=== PATIENT | male | born 1955 | race Two or more races ===

== ENCOUNTER 2018-09-29 07:15 | Inpatient (IN) | payer MEDICAID ==
[~2018-09-29] VITALS: Ht 170.2 cm; Wt 80.3 kg
[~2018-09-29 07:15] MED LIST: METF-414 PO
[2018-09-29] MEDS ORDERED: GLIP5TAB12 PO (08:51)
[2018-09-29] MEDS ORDERED: TOBR5DRO2 OP (08:51)
[2018-09-29] MEDS ORDERED: MULT-1276 PO (08:51)
[2018-09-29] MEDS ORDERED: ASCO-339 PO (08:51)
[2018-09-29] MEDS ORDERED: GABA-531 PO (08:51)
[2018-09-29] MEDS ORDERED: ALBU18HF2 IH (08:51)
[2018-09-29] MEDS ORDERED: LATA2.5D2 OP (08:51)
[2018-09-29] MEDS ORDERED: CEFOXITIN SODIUM 2 G in DEXT 5% WATER 100 ML IV SCH (09:30)
[2018-09-29] MEDS ORDERED: LIDOCAINE HCL 1% 20ML VIAL (Pyxis) INJ ONE (09:42)
[2018-09-29] MEDS ORDERED: BUPIVACAINE HCL/PF 0.5% (5MG/ML) 10ML ONE (09:43)
[2018-09-29] MEDS ORDERED: BACITRACIN 50,000 UNITS/VIAL ONE (09:43)
[2018-09-29] MEDS ORDERED: SKIN ADHESIVE 0.7 GM EA TOP ONE (09:43)
[2018-09-29] MEDS ORDERED: EPHEDRINE SULFATE 50MG/ML VIAL ONE (09:45)
[2018-09-29] MEDS ORDERED: NEOSTIGMINE METHYLSULFATE 1MG/ML 10 ML VIAL ONE (09:45)
[2018-09-29] MEDS ORDERED: SODIUM CHLORIDE 0.9% 10ML VIAL ONE (09:45)
[2018-09-29] MEDS ORDERED: GLYCOPYRROLATE 0.2 MG/ML 2ML VIAL ONE (09:45)
[2018-09-29] MEDS ORDERED: FENTANYL CITRATE/PF 50MCG/ML 2ML VIAL ONE ×3 (09:45→11:24)
[2018-09-29] MEDS ORDERED: ROCURONIUM BROMIDE 10MG/ML VIAL 5ML IV ONE (09:45)
[2018-09-29] MEDS ORDERED: SUCCINYLCHOLINE CHLORIDE 200MG/10ML IV ONE (09:45)
[2018-09-29] MEDS ORDERED: ONDANSETRON HCL 4MG/2ML INJ ONE (09:45)
[2018-09-29] MEDS ORDERED: PHENYLEPHRINE HCL 10 MG/ML 1ML (IV VIAL) IV ONE (09:45)
[2018-09-29] MEDS ORDERED: PROPOFOL 200MG/20ML VIAL IV ONE (09:45)
[2018-09-29] MEDS ORDERED: METOCLOPRAMIDE HCL 10MG/2ML VIAL ONE (09:45)
[2018-09-29] MEDS ORDERED: MIDAZOLAM HCL 2 MG/2 ML VIAL ONE (09:45)
[2018-09-29] MEDS ORDERED: LIDOCAINE HCL/PF 1% 10 MG/ML 5ML VIAL ONE (09:51)
[2018-09-29] MEDS ORDERED: SODIUM CHLORIDE 0.9% 1,000 ML IV ONE (11:51)
[2018-09-29] MEDS ORDERED: HYDROMORPHONE HCL/PF 2MG/ML CPJ IV PRN (12:00)
[2018-09-29] MEDS ORDERED: MEPERIDINE HCL/PF 25MG/ML CPJ IV PRN ×2 (12:00)
[2018-09-29] MEDS ORDERED: ONDANSETRON HCL 4MG/2ML INJ IV PRN ×2 (12:00→12:45)
[2018-09-29] MEDS ORDERED: MORPHINE SULFATE 4 MG/ML CPJ (NOT FOR IM USE) IV PRN (12:00)
[2018-09-29] MEDS ORDERED: DEXTROSE 50% WATER 50ML SYRINGE IV PRN (12:45)
[2018-09-29 16:00] VITALS: BP 147/81
[2018-09-29] MEDS ORDERED: MEDICATION NOT ON FORMULARY EA (Gabapentin 300 MG) PO SCH (17:00)
[2018-09-29] MEDS: INSULIN LISPRO 100 UNITS/ML SUBCUT SCH ×2 (17:50→21:00)
[2018-09-29] MEDS: GABAPENTIN 300MG CAPSULE PO SCH (18:47)
[2018-09-29] MEDS: KETOROLAC 30MG/ML VIAL IV SCH (18:47)
[2018-09-29 19:06] VITALS: BP 144/72
[2018-09-29 20:00] VITALS: BP 118/64
[2018-09-29] MEDS: CEFOXITIN SODIUM 1 G in DEXTROSE 5% WATER 50 ML IV SCH (21:30)
[2018-09-29] MEDS: DEXT 5%/0.45% NACL KCL 20MEQ/L 1,000 ML IV SCH (21:30)
[2018-09-29] MEDS: LATANOPROST 0.005% OPHTH DROPS 2.5ML BOTHEYE SCH (21:30)
[2018-09-29] MEDS: TOBRAMYCIN/DEXAMETH 0.1/0.3% OPHTH SUSP 2.5ML BOTHEYE SCH (21:31)
[2018-09-29] MEDS: BLOOD SUGAR DIAGNOSTIC STRIP TEST SCH (21:31)
[2018-09-29] MEDS: FAMOTIDINE 20MG/2ML VIAL IV SCH (21:37)
[2018-09-30] VITALS: BP 105/57
[2018-09-30] MEDS: KETOROLAC 30MG/ML VIAL IV SCH ×2 (00:37→06:03)
[2018-09-30] MEDS: CEFOXITIN SODIUM 1 G in DEXTROSE 5% WATER 50 ML IV SCH ×4 (02:57→20:43)
[2018-09-30 04:00] VITALS: BP 108/55
[2018-09-30 06:38] LABS: BASOPHILS % 0.4 % (0.0-2.0); EOSINOPHILS % 1.9 % (0.0-5.0); HEMATOCRIT. 31.3 % (42.0-52.0); HEMOGLOBIN. 10.8 g/dL (14.0-18.0); LYMPHOCYTES % 18.6 % (20.0-50.0); MEAN CORPUSCULAR HEMOGLOBIN 30.4 pg (28.0-32.0); MEAN CORPUSCULAR VOLUME 87.9 fL (80.0-94.0); MEAN PLATELET VOLUME 8.9 fl (7.4-10.4); MONOCYTES % 10.3 % (2.0-8.0); NEUTROPHILS % 68.8 % (40.0-76.0); PLATELET 188 x1000/uL (130-400); RED BLOOD CELL COUNT 3.57 mill/uL (4.7-6.1); RED CELL DISTRIBUTION WIDTH 14.5 % (11.6-14.6)
[2018-09-30] MEDS: BLOOD SUGAR DIAGNOSTIC STRIP TEST SCH ×4 (07:21→20:44)
[2018-09-30] MEDS: INSULIN LISPRO 100 UNITS/ML SUBCUT SCH ×4 (07:21→20:56)
[2018-09-30 08:00] VITALS: BP 119/64
[2018-09-30] MEDS: GABAPENTIN 300MG CAPSULE PO SCH ×2 (09:03→17:36)
[2018-09-30] MEDS: FAMOTIDINE 20MG/2ML VIAL IV SCH ×2 (09:03→20:44)
[2018-09-30] MEDS: TOBRAMYCIN/DEXAMETH 0.1/0.3% OPHTH SUSP 2.5ML BOTHEYE SCH (09:04)
[2018-09-30] MEDS: DEXT 5%/0.45% NACL KCL 20MEQ/L 1,000 ML IV SCH ×2 (09:10→17:37)
[2018-09-30 10:12] LABS: CHLORIDE 109 mEq/L (98-107)
[2018-09-30 12:00] VITALS: BP 117/66
[2018-09-30 16:00] VITALS: BP 131/66
[2018-09-30] MEDS: HYDROMORPHONE HCL/PF 2MG/ML CPJ IV PRN (17:51)
[2018-09-30 20:00] VITALS: BP 111/64
[2018-09-30] MEDS: LATANOPROST 0.005% OPHTH DROPS 2.5ML BOTHEYE SCH (20:43)
[2018-10-01] VITALS: BP 118/76
[2018-10-01 04:00] VITALS: BP 128/66
[2018-10-01] MEDS: DEXT 5%/0.45% NACL KCL 20MEQ/L 1,000 ML IV SCH ×3 (05:12→23:09)
[2018-10-01] MEDS: HYDROMORPHONE HCL/PF 2MG/ML CPJ IV PRN (05:54)
[2018-10-01] MEDS: BLOOD SUGAR DIAGNOSTIC STRIP TEST SCH ×4 (07:42→21:43)
[2018-10-01] MEDS: INSULIN LISPRO 100 UNITS/ML SUBCUT SCH ×4 (07:42→23:20)
[2018-10-01 08:00] VITALS: BP 116/58
[2018-10-01 08:08] LABS: BASOPHILS % 0.5 % (0.0-2.0); EOSINOPHILS % 3.9 % (0.0-5.0); HEMOGLOBIN. 11.2 g/dL (14.0-18.0); MEAN CORPUSCULAR HEMOGLOBIN 29.6 pg (28.0-32.0); MEAN CORPUSCULAR VOLUME 87.2 fL (80.0-94.0); MEAN PLATELET VOLUME 8.9 fl (7.4-10.4); MONOCYTES % 10.2 % (2.0-8.0); NEUTROPHILS % 67.4 % (40.0-76.0); PLATELET 210 x1000/uL (130-400); RED BLOOD CELL COUNT 3.79 mill/uL (4.7-6.1); RED CELL DISTRIBUTION WIDTH 14.1 % (11.6-14.6)
[2018-10-01 08:20] LABS: CHLORIDE 109 mEq/L (98-107)
[2018-10-01] MEDS: GABAPENTIN 300MG CAPSULE PO SCH ×2 (09:45→17:39)
[2018-10-01] MEDS: TOBRAMYCIN/DEXAMETH 0.1/0.3% OPHTH SUSP 2.5ML BOTHEYE SCH (09:45)
[2018-10-01] MEDS: FAMOTIDINE 20MG/2ML VIAL IV SCH ×2 (09:45→23:09)
[2018-10-01 12:22] VITALS: BP 138/75
[2018-10-01 16:00] VITALS: BP_SYST 152; BP_SYST 165; BP_DIAS 76; BP_DIAS 83
[2018-10-01 20:00] VITALS: BP 132/88
[2018-10-01] MEDS ORDERED: HYDROMORPHONE HCL/PF 2MG/ML CPJ IV PRN (20:00)
[2018-10-01] MEDS: LATANOPROST 0.005% OPHTH DROPS 2.5ML BOTHEYE SCH (23:09)
[2018-10-02] VITALS: BP 129/78
[2018-10-02 04:00] VITALS: BP 143/79
[2018-10-02] MEDS: INSULIN LISPRO 100 UNITS/ML SUBCUT SCH ×4 (07:50→20:49)
[2018-10-02] MEDS: BLOOD SUGAR DIAGNOSTIC STRIP TEST SCH ×4 (07:53→20:48)
[2018-10-02 08:00] VITALS: BP 141/72
[2018-10-02] MEDS: DEXT 5%/0.45% NACL KCL 20MEQ/L 1,000 ML IV SCH ×2 (09:00→19:00)
[2018-10-02] MEDS: FAMOTIDINE 20MG/2ML VIAL IV SCH ×2 (09:48→20:38)
[2018-10-02] MEDS: GABAPENTIN 300MG CAPSULE PO SCH ×2 (09:48→17:57)
[2018-10-02] MEDS: ENOXAPARIN 40MG/0.4ML SYR SUBCUT SCH (09:48)
[2018-10-02] MEDS: TOBRAMYCIN/DEXAMETH 0.1/0.3% OPHTH SUSP 2.5ML BOTHEYE SCH (09:49)
[2018-10-02 12:00] VITALS: BP 155/79
[2018-10-02 16:28] VITALS: BP 142/75
[2018-10-02] MEDS ORDERED: ACETAMINOPHEN 650MG/20.3ML UDC PO PRN (16:45)
[2018-10-02 20:00] VITALS: BP 152/80
[2018-10-02] MEDS: LATANOPROST 0.005% OPHTH DROPS 2.5ML BOTHEYE SCH (21:48)
[2018-10-03] VITALS: BP 114/65
[2018-10-03 04:00] VITALS: BP 131/70
[2018-10-03] MEDS: DEXT 5%/0.45% NACL KCL 20MEQ/L 1,000 ML IV SCH ×2 (04:38→15:48)
[2018-10-03] MEDS: BLOOD SUGAR DIAGNOSTIC STRIP TEST SCH ×4 (06:48→21:00)
[2018-10-03 08:00] VITALS: BP 143/73
[2018-10-03] MEDS: FAMOTIDINE 20MG/2ML VIAL IV SCH ×2 (08:55→21:50)
[2018-10-03] MEDS: ENOXAPARIN 40MG/0.4ML SYR SUBCUT SCH (08:55)
[2018-10-03] MEDS: GABAPENTIN 300MG CAPSULE PO SCH ×2 (08:56→17:52)
[2018-10-03] MEDS: INSULIN LISPRO 100 UNITS/ML SUBCUT SCH ×4 (09:00→22:22)
[2018-10-03] MEDS: TOBRAMYCIN/DEXAMETH 0.1/0.3% OPHTH SUSP 2.5ML BOTHEYE SCH (09:15)
[2018-10-03 12:00] VITALS: BP 130/71
[2018-10-03 16:00] VITALS: BP 147/77
[2018-10-03 20:00] VITALS: BP 127/71
[2018-10-03] MEDS: LATANOPROST 0.005% OPHTH DROPS 2.5ML BOTHEYE SCH (21:50)
[2018-10-04] VITALS: BP 107/60
[2018-10-04 04:00] VITALS: BP 130/72
[2018-10-04] MEDS: INSULIN LISPRO 100 UNITS/ML SUBCUT SCH (07:50)
[2018-10-04 08:00] VITALS: BP 136/71
[2018-10-04] MEDS: FAMOTIDINE 20MG/2ML VIAL IV SCH (10:26)
[2018-10-04] MEDS: LATANOPROST 0.005% OPHTH DROPS 2.5ML BOTHEYE SCH (10:26)
[2018-10-04] MEDS: GABAPENTIN 300MG CAPSULE PO SCH (10:26)
[2018-10-04] MEDS: ENOXAPARIN 40MG/0.4ML SYR SUBCUT SCH (10:27)
[2018-10-04 12:00] VITALS: BP 133/71
== END 2018-10-04 13:50 | disposition home or self-care (01) | DRG 231 ==
LOC: OR 07:15 → 6WST 17:15 → 6EST 18:17
PROVIDERS: ADMIT Specialist; ATTEND Specialist
PROC: 0DBL0ZZ Excision of Transverse Colon, Open Approach (ICD-10-PCS; principal; 2018-09-29)
DX: Z43.3 Encounter for attention to colostomy (principal); K56.7 Ileus, unspecified; I10 Essential (primary) hypertension; J44.9 Chronic obstructive pulmonary disease, unspecified; E11.9 Type 2 diabetes mellitus without complications; Z96.659 Presence of unspecified artificial knee joint; Z79.84 Long term (current) use of oral hypoglycemic drugs; Z85.038 Personal history of other malignant neoplasm of large intestine; Z79.899 Other long term (current) drug therapy; Z79.51 Long term (current) use of inhaled steroids
CPT/HCPCS: 36415; 80048; 82962; 88304; 93005; J0330; J0694; J1170; J1650; J1815; J1885; J2175; J2250; J2370; J2405; J2704; J2710; J2765; J3010; J3490; J7060

== ENCOUNTER 2018-10-09 12:03 | Emergency (ER) | payer MEDICAID ==
[~2018-10-09] VITALS: Ht 175.3 cm; Wt 72.4 kg
[~2018-10-09 12:03] MED LIST changes: +ALBU18HF2 IH; +ASCO-339 PO; +GABA-531 PO; +GLIP5TAB12 PO; +LATA2.5D2 OP; +MULT-1276 PO; +TOBR5DRO2 OP
[2018-10-09 17:27] LABS: BASOPHILS % 0.5 % (0.0-2.0); EOSINOPHILS % 1.5 % (0.0-5.0); HEMATOCRIT. 34.9 % (42.0-52.0); HEMOGLOBIN. 11.9 g/dL (14.0-18.0); LYMPHOCYTES % 15.9 % (20.0-50.0); MEAN CORPUSCULAR VOLUME 87.6 fL (80.0-94.0); MEAN PLATELET VOLUME 8.3 fl (7.4-10.4); MONOCYTES % 7.1 % (2.0-8.0); PLATELET 386 x1000/uL (130-400); RED BLOOD CELL COUNT 3.99 mill/uL (4.7-6.1); RED CELL DISTRIBUTION WIDTH 13.5 % (11.6-14.6)
[2018-10-09 17:36] LABS: INR 1.1; PROTHROMBIN TIME 11.2 sec (9.1-11.1)
[2018-10-09 17:39] LABS: CHLORIDE 100 mEq/L (98-107)
[2018-10-09 18:15] LABS: CLARITY URINE CLEAR (CLEAR); COLOR URINE YELLOW (YELLOW); KETONES URINE 2+ (NEGATIVE); LEUKOCYTE ESTERASE URINE NEGATIVE (NEGATIVE); NITRITE URINE NEGATIVE (NEGATIVE); OCCULT BLOOD URINE NEGATIVE (NEGATIVE); PROTEIN URINE TRACE (NEGATIVE); SPECIFIC GRAVITY URINE 1.018 (1.005-1.030); UROBILINOGEN URINE 0.2 E.U./dL (0.2-1.0)
[2018-10-09 18:27] VITALS: BP 139/77
== END 2018-10-09 18:31 | disposition home or self-care (01) ==
LOC: ER 12:03
DX: G89.18 Other acute postprocedural pain (principal); R10.32 Left lower quadrant pain; E11.9 Type 2 diabetes mellitus without complications; Z09 Encounter for follow-up examination after completed treatment for conditions other than malignant neoplasm; Z79.899 Other long term (current) drug therapy; Z98.890 Other specified postprocedural states; Z93.3 Colostomy status
CPT/HCPCS: 36415; 74176; 99284

== ENCOUNTER 2019-02-20 12:13 | Inpatient (IN) | payer MEDICAID ==
[~2019-02-20] VITALS: Ht 170.2 cm; Wt 77.6 kg
[2019-02-20] MEDS ORDERED: SODIUM CHLORIDE 0.9% 1,000 ML IV ONE (15:42)
[2019-02-20] MEDS ORDERED: PIPERACILLIN/TAZ 3.375G PREMIX 50 ML IV ONE (15:45)
[2019-02-20] MEDS ORDERED: VANCOMYCIN 1 G PREMIX 200 ML IV SCH (15:45)
[2019-02-20 16:14] LABS: BASOPHILS % 0.5 % (0.0-2.0); EOSINOPHILS % 2.5 % (0.0-5.0); HEMATOCRIT. 38.4 % (42.0-52.0); HEMOGLOBIN. 13.1 g/dL (14.0-18.0); LYMPHOCYTES % 30.4 % (20.0-50.0); MEAN CORPUSCULAR HEMOGLOBIN 29.6 pg (28.0-32.0); MEAN CORPUSCULAR VOLUME 86.4 fL (80.0-94.0); MEAN PLATELET VOLUME 8.4 fl (7.4-10.4); MONOCYTES % 7.7 % (2.0-8.0); NEUTROPHILS % 58.9 % (40.0-76.0); PLATELET 241 x1000/uL (130-400); RED BLOOD CELL COUNT 4.44 mill/uL (4.7-6.1); RED CELL DISTRIBUTION WIDTH 14.6 % (11.6-14.6)
[2019-02-20 16:19] LABS: CHLORIDE 106 mEq/L (98-107); PROTHROMBIN TIME 10.3 sec (9.6-11.0)
[2019-02-20 22:00] VITALS: BP 142/85
[2019-02-20] MEDS ORDERED: MORPHINE SULFATE 2 MG/ML CPJ (NOT FOR IM USE) IV PRN (22:00)
[2019-02-20] MEDS ORDERED: ACETAMINOPHEN 325MG TABLET PO PRN (22:00)
[2019-02-20] MEDS ORDERED: ONDANSETRON HCL 4MG/2ML INJ IV PRN (22:00)
[2019-02-20] MEDS ORDERED: PIPERACILLIN/TAZ 3.375G PREMIX 50 ML IV SCH (22:00)
[2019-02-20 23:09] VITALS: BP 142/85
[2019-02-21] VITALS: BP 135/81
[2019-02-21] MEDS: DEXT 5%/0.45% NACL 1000ML 1,000 ML IV SCH (01:55)
[2019-02-21] MEDS: PIPERACILLIN/TAZ 3.375G PREMIX 50 ML IV SCH ×2 (01:58→11:51)
[2019-02-21 04:00] VITALS: BP 118/68
[2019-02-21] MEDS ORDERED: VANCOMYCIN 750 MG PREMIX 150 ML IV SCH (04:00)
[2019-02-21 06:50] LABS: BASOPHILS % 0.5 % (0.0-2.0); EOSINOPHILS % 3.7 % (0.0-5.0); HEMATOCRIT. 34.8 % (42.0-52.0); LYMPHOCYTES % 25.9 % (20.0-50.0); MEAN CORPUSCULAR HEMOGLOBIN 29.9 pg (28.0-32.0); MEAN CORPUSCULAR VOLUME 86.5 fL (80.0-94.0); MEAN PLATELET VOLUME 8.5 fl (7.4-10.4); MONOCYTES % 7.6 % (2.0-8.0); NEUTROPHILS % 62.3 % (40.0-76.0); PLATELET 209 x1000/uL (130-400); RED BLOOD CELL COUNT 4.03 mill/uL (4.7-6.1); RED CELL DISTRIBUTION WIDTH 14.5 % (11.6-14.6)
[2019-02-21] MEDS ORDERED: BUPIVACAINE HCL/PF 0.5% (5MG/ML) 10ML ONE (06:52)
[2019-02-21] MEDS ORDERED: LIDOCAINE HCL 1% 20ML VIAL (Pyxis) INJ ONE (06:52)
[2019-02-21] MEDS ORDERED: BACITRACIN 50,000 UNITS/VIAL ONE (06:53)
[2019-02-21] MEDS ORDERED: NORMAL SALINE 0.9% 10 ML SYR ONE (06:53)
[2019-02-21 07:12] LABS: CHLORIDE 110 mEq/L (98-107)
[2019-02-21] MEDS ORDERED: HYDROMORPHONE HCL/PF 2MG/ML CPJ IV PRN (09:15)
[2019-02-21 10:30] VITALS: BP 152/78
[2019-02-21 12:00] VITALS: BP 144/76
[2019-02-21] MEDS: VANCOMYCIN 1 G PREMIX 200 ML IV SCH ×2 (14:28→23:23)
[2019-02-21 16:00] VITALS: BP 138/81
[2019-02-21] MEDS ORDERED: DEXTROSE 50% WATER 50ML SYRINGE IV PRN (16:45)
[2019-02-21] MEDS: BLOOD SUGAR DIAGNOSTIC STRIP TEST SCH ×2 (17:46→21:00)
[2019-02-21] MEDS: INSULIN LISPRO 100 UNITS/ML SUBCUT SCH ×2 (17:54→22:24)
[2019-02-21 20:00] VITALS: BP 129/70
[2019-02-21] MEDS ORDERED: LATANOPROST 0.005% OPHTH DROPS 2.5ML BOTHEYE SCH (21:00)
[2019-02-22] VITALS: BP 102/51
[2019-02-22] MEDS: PIPERACILLIN/TAZ 3.375G PREMIX 50 ML IV SCH ×4 (00:01→16:19)
[2019-02-22] MEDS: DEXT 5%/0.45% NACL 1000ML 1,000 ML IV SCH (01:27)
[2019-02-22 04:00] VITALS: BP 116/59
[2019-02-22] MEDS: VANCOMYCIN 1 G PREMIX 200 ML IV SCH ×2 (06:09→13:48)
[2019-02-22 06:30] LABS: BASOPHILS % 0.3 % (0.0-2.0); EOSINOPHILS % 0.5 % (0.0-5.0); HEMOGLOBIN. 11.7 g/dL (14.0-18.0); LYMPHOCYTES % 21.7 % (20.0-50.0); MEAN CORPUSCULAR HEMOGLOBIN 29.8 pg (28.0-32.0); MEAN CORPUSCULAR VOLUME 86.5 fL (80.0-94.0); MEAN PLATELET VOLUME 8.5 fl (7.4-10.4); MONOCYTES % 8.2 % (2.0-8.0); NEUTROPHILS % 69.3 % (40.0-76.0); PLATELET 198 x1000/uL (130-400); RED BLOOD CELL COUNT 3.93 mill/uL (4.7-6.1); RED CELL DISTRIBUTION WIDTH 14.1 % (11.6-14.6)
[2019-02-22 07:54] LABS: CHLORIDE 107 mEq/L (98-107)
[2019-02-22 08:00] VITALS: BP 121/64
[2019-02-22] MEDS: BLOOD SUGAR DIAGNOSTIC STRIP TEST SCH ×2 (08:08→12:20)
[2019-02-22 08:17] LABS: VANCOMYCIN TROUGH 18.8 ug/mL (5.0-10.0)
[2019-02-22] MEDS: INSULIN LISPRO 100 UNITS/ML SUBCUT SCH ×2 (08:28→13:47)
[2019-02-22 12:00] VITALS: BP 121/62
[2019-02-22 16:00] VITALS: BP 158/75
[2019-02-22 17:02] VITALS: BP 158/75
== END 2019-02-22 18:16 | disposition home health service (06) | DRG 951 ==
LOC: ER 12:13 → 6EST 16:15 → ENRESERV 16:39 → CANRESERV 16:39 → ENRESERV 19:32
PROVIDERS: ADMIT Internal Medicine; ATTEND Internal Medicine
PROC: 0KBL0ZZ Excision of Left Abdomen Muscle, Open Approach (ICD-10-PCS; principal; 2019-02-22)
DX: K94.02 Colostomy infection (principal); L02.211 Cutaneous abscess of abdominal wall; E11.9 Type 2 diabetes mellitus without complications; I10 Essential (primary) hypertension; Z96.659 Presence of unspecified artificial knee joint; Y83.8 Other surgical procedures as the cause of abnormal reaction of the patient, or of later complication, without mention of misadventure at the time of the procedure; F17.200 Nicotine dependence, unspecified, uncomplicated; Z85.048 Personal history of other malignant neoplasm of rectum, rectosigmoid junction, and anus; Z90.49 Acquired absence of other specified parts of digestive tract; Z83.3 Family history of diabetes mellitus; Z79.899 Other long term (current) drug therapy; Z79.84 Long term (current) use of oral hypoglycemic drugs
CPT/HCPCS: 36415; 71045; 80048; 80202; 82962; 83605; 86850; 86900; 87070; 87075; 87077; 88304; 93005; 96365; 99285; J1815; J2543; J3370; J3490; J7030

== ENCOUNTER 2019-09-01 19:05 | Inpatient (IN) | payer MEDICAID ==
[~2019-09-01] VITALS: Ht 154.9 cm; Wt 78.9 kg
[2019-09-01] MEDS ORDERED: IPRATROPIUM BROMIDE (0.02%) 0.5MG/2.5ML NEB HHN STA (20:19)
[2019-09-01] MEDS ORDERED: SODIUM CHLORIDE 0.9% 1,000 ML IV ONE (20:19)
[2019-09-01] MEDS ORDERED: METHYLPREDNISOLONE SOD SUCC 125 MG/2 ML VIAL IV STA (20:19)
[2019-09-01] MEDS ORDERED: ACETAMINOPHEN 325MG TABLET PO STA (20:19)
[2019-09-01] MEDS ORDERED: MAGNESIUM 2 G PREMIX 50 ML IV ONE (20:30)
[2019-09-01] MEDS ORDERED: PIPERACILLIN/TAZ 3.375G PREMIX 50 ML IV ONE (20:30)
[2019-09-01] MEDS: ALBUTEROL (0.083%) 2.5MG/3ML NEB HHN SCH ×3 (21:00→22:53)
[2019-09-01 21:25] LABS: HEMATOCRIT. 38.1 % (42.0-52.0); HEMOGLOBIN. 13.1 g/dL (14.0-18.0); MEAN CORPUSCULAR HEMOGLOBIN 31.2 pg (28.0-32.0); MEAN CORPUSCULAR VOLUME 90.7 fL (80.0-94.0); PLATELET 215 x1000/uL (130-400); RED CELL DISTRIBUTION WIDTH 13.8 % (11.6-14.6)
[2019-09-01 21:29] LABS: CHLORIDE 105 mEq/L (98-107); INR 1.1; PROTHROMBIN TIME 10.8 sec (9.6-11.0)
[2019-09-01 21:47] LABS: PLATELET ESTIMATE NORMAL
[2019-09-02] VITALS (8 sets, daily range): BP systolic 112–139; BP diastolic 60–68
[2019-09-02] MEDS ORDERED: ACETAMINOPHEN 325MG TABLET PO PRN (01:30)
[2019-09-02] MEDS ORDERED: DEXTROSE 50% WATER 50ML SYRINGE IV PRN (01:30)
[2019-09-02] MEDS ORDERED: ONDANSETRON HCL 4MG/2ML INJ IV PRN (01:30)
[2019-09-02 03:06] LABS: CHLORIDE 105 mEq/L (98-107)
[2019-09-02 03:09] LABS: HEMATOCRIT. 36.3 % (42.0-52.0); HEMOGLOBIN. 12.5 g/dL (14.0-18.0); MEAN CORPUSCULAR VOLUME 90.1 fL (80.0-94.0); PLATELET 208 x1000/uL (130-400); RED BLOOD CELL COUNT 4.03 mill/uL (4.7-6.1); RED CELL DISTRIBUTION WIDTH 13.7 % (11.6-14.6)
[2019-09-02] MEDS: METHYLPREDNISOLONE SOD SUCC 40 MG/ML VIAL IV SCH ×3 (05:07→21:45)
[2019-09-02] MEDS: BLOOD SUGAR DIAGNOSTIC STRIP TEST SCH ×4 (05:07→21:46)
[2019-09-02 05:47] LABS: PLATELET ESTIMATE NORMAL
[2019-09-02] MEDS: IPRATROPIUM/ALBUTEROL 0.5-3(2.5)MG/3ML NEB HHN SCH ×4 (08:00→20:21)
[2019-09-02] MEDS: ENOXAPARIN 40MG/0.4ML SYR SUBCUT SCH (08:28)
[2019-09-02] MEDS: INSULIN LISPRO 100 UNITS/ML SUBCUT SCH ×4 (08:32→22:00)
[2019-09-02] MEDS ORDERED: PNEUMOCOCCAL 23-VAL P-SAC VAC 0.5 ML IM ONE (09:00)
[2019-09-03] MEDS: IPRATROPIUM/ALBUTEROL 0.5-3(2.5)MG/3ML NEB HHN SCH ×6 (00:23→20:16)
[2019-09-03 04:00] VITALS: BP 101/59
[2019-09-03] MEDS: METHYLPREDNISOLONE SOD SUCC 40 MG/ML VIAL IV SCH ×3 (05:35→21:38)
[2019-09-03] MEDS: INSULIN LISPRO 100 UNITS/ML SUBCUT SCH ×4 (06:31→18:05)
[2019-09-03] MEDS: BLOOD SUGAR DIAGNOSTIC STRIP TEST SCH ×4 (06:32→17:42)
[2019-09-03 08:00] VITALS: BP 110/65
[2019-09-03] MEDS: ENOXAPARIN 40MG/0.4ML SYR SUBCUT SCH (08:37)
[2019-09-03 12:00] VITALS: BP 108/74
[2019-09-03 16:00] VITALS: BP 106/66
[2019-09-03 20:00] VITALS: BP 131/64
[2019-09-04] VITALS (7 sets, daily range): BP systolic 128–157; BP diastolic 64–88
[2019-09-04] MEDS: IPRATROPIUM/ALBUTEROL 0.5-3(2.5)MG/3ML NEB HHN SCH ×5 (05:03→16:24)
[2019-09-04] MEDS: METHYLPREDNISOLONE SOD SUCC 40 MG/ML VIAL IV SCH ×2 (05:05→14:26)
[2019-09-04] MEDS: BLOOD SUGAR DIAGNOSTIC STRIP TEST SCH ×3 (07:20→17:20)
[2019-09-04] MEDS: INSULIN LISPRO 100 UNITS/ML SUBCUT SCH ×3 (08:09→18:55)
[2019-09-04] MEDS: ENOXAPARIN 40MG/0.4ML SYR SUBCUT SCH (08:10)
[2019-09-04] MEDS ORDERED: VANCOMYCIN 1500MG in DEXTROSE 5% WATER 250ML IV SCH (15:00)
[2019-09-05] MEDS ORDERED: VANCOMYCIN 1250MG in DEXTROSE 5% WATER 250ML IV SCH (06:00)
== END 2019-09-04 21:00 | disposition home or self-care (01) | DRG 140 ==
LOC: ER 19:05 → 6WST 22:25 → ENRESERV 23:13
PROVIDERS: ADMIT Internal Medicine; ATTEND Internal Medicine
DX: J44.1 Chronic obstructive pulmonary disease with (acute) exacerbation (principal); J96.01 Acute respiratory failure with hypoxia; E11.65 Type 2 diabetes mellitus with hyperglycemia; F17.200 Nicotine dependence, unspecified, uncomplicated; J44.0 Chronic obstructive pulmonary disease with (acute) lower respiratory infection; I10 Essential (primary) hypertension; J20.9 Acute bronchitis, unspecified; Z93.3 Colostomy status; Z85.038 Personal history of other malignant neoplasm of large intestine; Z79.2 Long term (current) use of antibiotics; Z79.84 Long term (current) use of oral hypoglycemic drugs; Z79.899 Other long term (current) drug therapy
CPT/HCPCS: 36415; 71045; 80048; 80053; 82962; 83605; 83880; 84145; 84484; 85025; 93005; 94640; 96361; 96365; 96368; 96375; 99291; J1650; J1815; J2543; J2920; J2930; J3370; J3475; J7030; J7060; J7611; J7620

== ENCOUNTER 2019-10-10 08:22 | Inpatient (IN) | payer MEDICAID ==
[~2019-10-10] VITALS: Ht 170.2 cm; Wt 77.6 kg
[2019-10-10 09:28] LABS: BASOPHILS % 0.6 % (0.0-2.0); EOSINOPHILS % 0.4 % (0.0-5.0); HEMATOCRIT. 38.4 % (42.0-52.0); HEMOGLOBIN. 13.3 g/dL (14.0-18.0); LYMPHOCYTES % 7.8 % (20.0-50.0); MEAN CORPUSCULAR HEMOGLOBIN 30.9 pg (28.0-32.0); MEAN CORPUSCULAR VOLUME 89.6 fL (80.0-94.0); MEAN PLATELET VOLUME 8.7 fl (7.4-10.4); MONOCYTES % 4.3 % (2.0-8.0); NEUTROPHILS % 86.9 % (40.0-76.0); PLATELET 200 x1000/uL (130-400); RED BLOOD CELL COUNT 4.28 mill/uL (4.7-6.1); RED CELL DISTRIBUTION WIDTH 13.3 % (11.6-14.6)
[2019-10-10] MEDS ORDERED: METHYLPREDNISOLONE SOD SUCC 125 MG/2 ML VIAL IV ONE (09:30)
[2019-10-10] MEDS ORDERED: ALBUTEROL (0.083%) 2.5MG/3ML NEB HHN ONE (09:30)
[2019-10-10] MEDS ORDERED: PREDNISONE 20MG TABLET PO ONE (09:30)
[2019-10-10] MEDS ORDERED: IPRATROPIUM BROMIDE (0.02%) 0.5MG/2.5ML NEB HHN ONE (09:30)
[2019-10-10 09:31] LABS: CHLORIDE 105 mEq/L (98-107)
[2019-10-10] MEDS ORDERED: LORAZEPAM 2MG/ML CPJ IV PRN (10:30)
[2019-10-10] MEDS ORDERED: HYDROCODONE/ACETAMINOPHEN 5/325MG TABLET PO PRN (10:30)
[2019-10-10] MEDS ORDERED: ACETAMINOPHEN 325MG TABLET PO PRN (10:30)
[2019-10-10] MEDS ORDERED: MORPHINE SULFATE 2 MG/ML CPJ (NOT FOR IM USE) IV PRN (10:30)
[2019-10-10] MEDS ORDERED: ONDANSETRON HCL 4MG/2ML INJ IV PRN (10:30)
[2019-10-10] MEDS ORDERED: DIPHENHYDRAMINE 50MG/ML VIAL IV PRN (10:30)
[2019-10-10] MEDS ORDERED: CLONIDINE 0.1MG TABLET PO PRN (10:30)
[2019-10-10] MEDS ORDERED: IPRATROPIUM/ALBUTEROL 0.5-3(2.5)MG/3ML NEB NEB PRN (10:30)
[2019-10-10] MEDS ORDERED: PIPERACILLIN/TAZ 3.375G PREMIX 50 ML IV SCH (10:30)
[2019-10-10] MEDS ORDERED: NA PHOS,M-B/NA PHOS,DI-BA ENEMA 118ML PR PRN (10:30)
[2019-10-10] MEDS ORDERED: DOCUSATE SODIUM 100MG CAPSULE PO PRN (10:30)
[2019-10-10] MEDS ORDERED: MAGNESIUM/ALUMINUM HYDROXIDE/SIMETHICONE 30ML UDC PO PRN (10:30)
[2019-10-10] MEDS ORDERED: GUAIFENESIN 200MG/10ML SUGAR FREE UDC PO PRN (10:30)
[2019-10-10 10:58] LABS: CHLORIDE 103 mEq/L (98-107)
[2019-10-10 12:30] VITALS: BP 117/57
[2019-10-10] MEDS ORDERED: DEXTROSE 50% WATER 50ML SYRINGE IV PRN (13:45)
[2019-10-10] MEDS ORDERED: GUAIFENESIN/DM 600MG/30MG ER TAB 12HR PO PRN (13:45)
[2019-10-10] MEDS ORDERED: IPRATROPIUM/ALBUTEROL 0.5-3(2.5)MG/3ML NEB HHN PRN (13:45)
[2019-10-10] MEDS ORDERED: BENZONATATE 100MG CAPSULE PO PRN (13:45)
[2019-10-10] MEDS ORDERED: PIPERACILLIN/TAZOBACTAM 3.375 G in DEXT 5% WATER 100 ML IV SCH (14:00)
[2019-10-10] MEDS: METHYLPREDNISOLONE SOD SUCC 125 MG/2 ML VIAL IV SCH ×2 (14:17→17:40)
[2019-10-10] MEDS: ASPIRIN 81MG EC TABLET PO SCH (14:17)
[2019-10-10] MEDS: LEVOFLOXACIN 500MG TABLET PO SCH (14:17)
[2019-10-10] MEDS: ENOXAPARIN 40MG/0.4ML SYR SUBCUT SCH (14:18)
[2019-10-10 16:00] VITALS: BP 122/73
[2019-10-10] MEDS: IPRATROPIUM/ALBUTEROL 0.5-3(2.5)MG/3ML NEB HHN SCH ×2 (16:18→20:51)
[2019-10-10] MEDS: BLOOD SUGAR DIAGNOSTIC STRIP TEST SCH ×2 (17:26→21:43)
[2019-10-10] MEDS: INSULIN LISPRO 100 UNITS/ML SUBCUT SCH ×2 (17:45→21:39)
[2019-10-10 20:00] VITALS: BP 124/63
[2019-10-10] MEDS ORDERED: MONTELUKAST SODIUM 10MG TABLET PO SCH (21:00)
[2019-10-10] MEDS: FAMOTIDINE 20MG TABLET PO SCH (21:43)
[2019-10-10] MEDS ORDERED: POTASSIUM CHLORIDE 20MEQ TABLET SR PO NR (21:57)
[2019-10-10] MEDS: FLUTICASONE PROPIONATE 50MCG/SPRAY BOTTLE BOTHNSTRLS SCH (22:29)
[2019-10-10 23:30] LABS: CLARITY URINE CLEAR (CLEAR); COLOR URINE YELLOW (YELLOW); KETONES URINE TRACE (NEGATIVE); LEUKOCYTE ESTERASE URINE NEGATIVE (NEGATIVE); NITRITE URINE NEGATIVE (NEGATIVE); OCCULT BLOOD URINE NEGATIVE (NEGATIVE); PH URINE 5.5 (4.5-8.0); PROTEIN URINE TRACE (NEGATIVE); SPECIFIC GRAVITY URINE 1.043 (1.005-1.030); UROBILINOGEN URINE 0.2 E.U./dL (0.2-1.0)
[2019-10-11] MEDS: METHYLPREDNISOLONE SOD SUCC 125 MG/2 ML VIAL IV SCH ×3 (00:28→11:25)
[2019-10-11] MEDS: IPRATROPIUM/ALBUTEROL 0.5-3(2.5)MG/3ML NEB HHN SCH ×4 (00:39→16:31)
[2019-10-11 00:46] VITALS: BP 118/54
[2019-10-11 04:00] VITALS: BP 121/66
[2019-10-11] MEDS: INSULIN LISPRO 100 UNITS/ML SUBCUT SCH ×2 (06:21→13:00)
[2019-10-11] MEDS: BLOOD SUGAR DIAGNOSTIC STRIP TEST SCH ×2 (07:02→13:02)
[2019-10-11 07:56] LABS: HEMATOCRIT. 39.2 % (42.0-52.0); HEMOGLOBIN. 13.3 g/dL (14.0-18.0); MEAN CORPUSCULAR HEMOGLOBIN 30.8 pg (28.0-32.0); MEAN CORPUSCULAR VOLUME 90.7 fL (80.0-94.0); MEAN PLATELET VOLUME 8.7 fl (7.4-10.4); PLATELET 193 x1000/uL (130-400); RED BLOOD CELL COUNT 4.32 mill/uL (4.7-6.1); RED CELL DISTRIBUTION WIDTH 13.4 % (11.6-14.6)
[2019-10-11 08:00] VITALS: BP 132/70
[2019-10-11 08:11] LABS: CHLORIDE 109 mEq/L (98-107)
[2019-10-11 08:24] LABS: HDL CHOLESTEROL 73 mg/dL (40-59); T4 FREE 1.03 ng/dL (0.76-1.46)
[2019-10-11 08:26] LABS: LDL CHOLESTEROL 67 mg/dL (5-100)
[2019-10-11] MEDS: FAMOTIDINE 20MG TABLET PO SCH (08:32)
[2019-10-11] MEDS: FLUTICASONE PROPIONATE 50MCG/SPRAY BOTTLE BOTHNSTRLS SCH (08:32)
[2019-10-11] MEDS: ASPIRIN 81MG EC TABLET PO SCH (08:32)
[2019-10-11] MEDS: LEVOFLOXACIN 500MG TABLET PO SCH (11:25)
[2019-10-11 12:00] VITALS: BP 127/59
[2019-10-11] MEDS: ENOXAPARIN 40MG/0.4ML SYR SUBCUT SCH (13:02)
[2019-10-11 16:00] VITALS: BP 118/72
[2019-10-11 17:45] VITALS: BP 118/72
[2019-10-11 18:01] LABS: PLATELET ESTIMATE NORMAL
[2019-10-12] MEDS ORDERED: PREDNISONE 20MG TABLET PO SCH (07:50)
== END 2019-10-11 18:05 | disposition home or self-care (01) | DRG 140 ==
LOC: ER 08:22 → 6WST 10:05 → ENRESERV 11:17
PROVIDERS: ADMIT Internal Medicine; ATTEND Internal Medicine
DX: J44.1 Chronic obstructive pulmonary disease with (acute) exacerbation (principal); J96.00 Acute respiratory failure, unspecified whether with hypoxia or hypercapnia; J69.0 Pneumonitis due to inhalation of food and vomit; R65.10 Systemic inflammatory response syndrome (SIRS) of non-infectious origin without acute organ dysfunction; J43.9 Emphysema, unspecified; D64.9 Anemia, unspecified; E11.9 Type 2 diabetes mellitus without complications; J20.9 Acute bronchitis, unspecified; E05.90 Thyrotoxicosis, unspecified without thyrotoxic crisis or storm; J00 Acute nasopharyngitis [common cold]; F17.210 Nicotine dependence, cigarettes, uncomplicated; I10 Essential (primary) hypertension; I44.7 Left bundle-branch block, unspecified; Z79.84 Long term (current) use of oral hypoglycemic drugs; Z79.899 Other long term (current) drug therapy; Z85.048 Personal history of other malignant neoplasm of rectum, rectosigmoid junction, and anus; Z90.49 Acquired absence of other specified parts of digestive tract; Z93.3 Colostomy status
CPT/HCPCS: 36415; 71045; 80048; 80053; 80061; 81003; 82962; 83735; 83880; 84439; 84443; 84484; 85025; 93005; 93306; 94640; 96372; 96374; 99285; J1650; J1815; J2543; J2930; J7060; J7512; J7611; J7620